=== PATIENT | female | born 1980 | race Caucasian/White ===

== ENCOUNTER → 2022-07-17 | Outpatient (CLI) | payer OTHER ==
--- NOTE | 2022-07-21 07:34 | MM ---
Reason for Exam: Screening (asymptomatic). Baseline mammogram. Patient History: Menarche at age 11. First Full-Term at age 26. Last menstrual period: 07/11/2022 Risk Values: Lizzie 5 year model risk: 0.8%. NCI Lifetime model risk: 11.9%. Prior Study Comparison: Patient's first Mammogram. Tissue Density: The breast tissue is heterogeneously dense. This may lower the sensitivity of mammography. Findings: Analyzed By CAD. There is no suspicious group of microcalcifications or new suspicious mass in either breast. Overall Assessment: Negative, BI-RAD 1 Management: Screening Mammogram of both breasts in [address] [facility] will attempt to contact patient to return for supplemental views and ultrasound if indicated. Patient should continue monthly self-breast exams. A clinical breast exam by your physician is recommended on an annual basis. This exam should not preclude additional follow-up of suspicious palpable abnormalities. Note on Lizzie scores and lifetime risk: 1. A Lizzie score greater than 3% is considered moderate risk. If this is the case, consider specialist referral to assess eligibility for a risk reducing agent. 2. If overall lifetime risk for the development of breast cancer is 20% or higher, the patient may qualify for future screening with alternating mammogram and breast MRI. Electronically signed and approved by: Anton Alfaro DO
== END | disposition home or self-care (01) ==
LOC: RADMAMWWP 09:14
PROVIDERS: ATTEND Family Medicine
DX: Z12.31 Encounter for screening mammogram for malignant neoplasm of breast (principal)
CPT/HCPCS: 77063; 77067

== ENCOUNTER → 2022-07-21 | Outpatient (CLI) | payer OTHER ==
[2022-07-21 09:57] VITALS: PULSE 76; RESP 17; TEMP 97.8
--- NOTE | 2022-07-21 10:59 | P.HPOB ---
History of Present Illness H&P Date: 07/21/22 Chief Complaint: The patient is here for her routine gynecologic exam. This is a 42-year-old 012 with an LMP of 07/05/2022. She is here to establish with this office. It has been about 7 or 8 years since her last pelvic exam. She uses condoms for control. She is declining any other method of control at this time. She states her menstrual periods are regular every month lasting 7 days with 2-3 days of heavier flow. Occasionally she can soak through her protection on the very heavy days and has to change her protection up to every 2 hours. Review of Systems The patient has gained 15 pounds over the last year. She believes her weight gain has been because of SSRI type medications. She denies respiratory or cardiac problems. GI: She did have a small amount of blood after a hard bowel movement this morning and she believes this is from her hemorrhoids. Past Medical History Past Medical History: No Reported History Additional Past Medical History / Comment(s): PAST [employer] HISTORY: She has no history of STDs. History of Any Multi-Drug Resistant Organisms: None Reported Past Surgical History: No Surgical Hx Reported Past Anesthesia/Blood Transfusion Reactions: No Reported Reaction Past Psychological History: Anxiety, Depression (Denies current depression on Prozac.) Smoking Status: Current every day smoker (Half pack per day.) Past Alcohol Use History: Occasional (0-5 per week.) Past Drug Use History: Marijuana (Denies use since 2020.) Additional Drug Use History / Comment(s): Quit using marijuana in 2020. Additional History: She has been since 2012. 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 - Past Family History Mother Family Medical History: Diabetes Mellitus, Hypertension, Thyroid Disorder Father Family Medical History: Myocardial Infarction ([place]) Additional Family Medical History / Comment(s): EtOH abuse. . Medications and Allergies Home Medications Medication Instructions Recorded Confirmed Type FLUoxetine HCL [PROzac] 20 mg PO DAILY 07/21/22 07/21/22 History Allergies Allergy/AdvReac Type Severity Reaction Status Date / Time No Known Allergies Allergy Unverified 07/21/22 09:50 Exam Vital Signs Temp Pulse Resp Pulse Ox 07/21/22 09:51 97.8 F 76 17 98 Intake and Output 07/20/22 07/21/22 07/21/22 22:59 06:59 14:59 Other: Weight 69.4 kg Height 5 feet 3 inches, weight 153 pounds, BMI 27.1. Repeat blood pressure was 156/98. This is a well-developed well-nourished white female who is alert and oriented times 3 in no acute distress. HEENT: Within normal limits. NECK: Supple without mass or thyromegaly. CHEST AND LUNGS: Clear to auscultation. HEART: Regular rate and rhythm. BREASTS: Are without mass or discharge. AXILLARY EXAM: Negative for adenopathy. BACK: Negative for CVA tenderness. ABDOMEN: Soft, nontender, without palpable masses. PELVIC EXAM: Normal external genitalia. The cervix appears mildly inflamed. There is a thick whitish discharge choose mucousy without odor. The vagina appears otherwise normal. There is no evidence of prolapse. The uterus is midposition, nongravid size and nontender. There are no palpable adnexal masses or tenderness. RECTAL EXAM: Negative for mass or tenderness but a small amount of red blood is noted on the examining finger. This was Hemoccult positive. EXTREMITIES: Nontender. IMPRESSION: 1. 32-year-old female using condoms for control with normal gynecologic exam. 2. Hypermenorrhea with regular menstrual periods. 3. Thick whitish discharge which the patient states it is not uncommon for her and she does notice this periodically. Differential diagnosis will include physiologic discharge, Sarah vaginitis, bacterial vaginosis, and less likely, Trichomonas. Also less likely, other STDs such as GC and chlamydia. 4. Elevated blood pressure. 5. Blood per rectum this morning per the patient and this was after a hard bowel movement. This most likely is from bleeding hemorrhoids PLAN: 1. Pap smear cotest was performed. GC and chlamydia testing will be obtained from the Pap smear. 2. Self breast awareness was discussed with the patient. We have also discussed symptoms associated with inflammatory breast cancer. 3. Screening mammogram was recently done on 07/17/2022 and was negative. 4. Affirm vaginitis panel was obtained from the vagina. 5. A fecal occult blood test Was given to the patient and she will return this to the lab for developing after keeping her stools soft for 2 weeks. 6. Trial of meclofenamate sodium 100 mg by mouth 3 times a day as needed for heavy menstrual flow up to 6 days per cycle. The electronic prescription will be sent to [facility] in [place]. If this is not helpful we'll consider other options such as endometrial ablation. 7. She will check her own blood pressures at home since she does have a blood pressure cuff. She will follow-up with her PCP this week to further discuss her elevated blood pressures. 8. She was advised to return in one year for her annual well woman exam and as needed.
== END ==
LOC: WWCWWP 09:42
PROVIDERS: ATTEND Obstetrics & Gynecology
DX: Z01.419 Encounter for gynecological examination (general) (routine) without abnormal findings (principal); F17.210 Nicotine dependence, cigarettes, uncomplicated; K62.5 Hemorrhage of anus and rectum; N92.0 Excessive and frequent menstruation with regular cycle; R03.0 Elevated blood-pressure reading, without diagnosis of hypertension; Z79.899 Other long term (current) drug therapy